=== PATIENT | male | born 1945 | race Caucasian/White ===

== ENCOUNTER 2019-06-30 08:02 | Outpatient (CLI) | payer MEDICARE, SELFPAY | END 2019-06-30 08:03 | disposition home or self-care (01) | PROVIDERS: PCP Internal Medicine; Visit Provider Internal Medicine | DX: E78.5 Hyperlipidemia, unspecified (principal); R05 Cough; R06.00 Dyspnea, unspecified | CPT/HCPCS: 94060; 94726; 94729 ==

== ENCOUNTER 2020-03-14 12:19 | Outpatient (CLI) | payer MEDICARE, SELFPAY ==
[2020-03-14 13:13] LABS: Alanine Aminotransferase 22 U/L (16-63); Albumin Level 3.9 g/dL (3.4-5.0); Alkaline Phosphatase 80 U/L (46-116); Anion Gap 6 mmol/L (8-16); Aspartate Amino Transferase 12 U/L (15-37); Bilirubin,Total 0.4 mg/dL (0.00-1.00); Blood Urea Nitrogen 16 mg/dL (7-18); Calcium 8.9 mg/dL (8.5-10.1); Carbon Dioxide 31 mmol/L (21-32); Chloride 104 mmol/L (98-108); Estimated Glomerular Filt Rate > 60; Glucose 82 mg/dL (70-99); Osmolality Calculated 292 mOsm/kg (285-295); Potassium 4.6 mmol/L (3.5-5.1); Prostate Specific Antigen 1.1 ng/mL (< OR = 4.0); Sodium 141 mmol/L (136-145); Total Protein 7.3 g/dL (6.4-8.2)
== END 2020-03-14 12:20 | disposition home or self-care (01) ==
LOC: CHSLAB 12:21
PROVIDERS: PCP Internal Medicine; Visit Provider Urology
DX: N42.9 Disorder of prostate, unspecified (principal); N40.1 Benign prostatic hyperplasia with lower urinary tract symptoms
CPT/HCPCS: 36415; 80053; 84153

== ENCOUNTER 2020-09-07 09:21 | Outpatient (CLI) | payer MEDICARE, SELFPAY ==
--- NOTE | ~2020-09-07 | XR_ITS ---
EXAMINATION: XR chest 2V EXAM DATE: 09/07/2020 09:50 INDICATION: Dyspnea, new onset. TECHNIQUE: Frontal and lateral projections of the chest obtained and reviewed. Comparison is made to prior examination from 01/26/2012. FINDINGS: Right basilar granuloma. The lungs are clear. There are no pleural effusions. The cardiom ediastinal silhouette is within normal limits. There is no pneumothorax suspected. The bones and so ft tissues are unremarkable. Accounting for differences in technique, there is no significant interv al change. IMPRESSION: No acute cardiopulmonary findings. Reviewed, dictated and finalized at location A.
[2020-09-07 09:36] LABS: Basophils Absolute Auto 0.17 K/mm3 (0.00-0.10); Basophils Percent Auto 2.4 % (0.0-1.0); Eosinophils Absolute Auto 0.53 K/mm3 (0.02-0.50); Eosinophils Percent Auto 7.5 % (1.0-6.0); Hematocrit 50.6 % (37.0-46.0); Hemoglobin 16.5 g/dL (12.4-15.3); Immature Granulocyte Absolute 0.03 K/mm3 (0.00-0.00); Immature Granulocyte Percent A 0.4 % (0.0-0.0); Lymphocytes Absolute Auto 1.35 K/mm3 (1.10-4.50); Lymphocytes Percent Auto 19.2 % (18.0-42.0); Mean Corpuscular HGB Conc 32.6 g/dL (32.0-36.0); Mean Corpuscular Hemoglobin 27.8 pg (27.0-31.0); Mean Corpuscular Volume 85.3 fL (78.0-102.0); Mean Platelet Volume 10.3 fl (8.7-11.0); Monocytes Absolute Auto 0.52 K/mm3 (0.10-0.90); Monocytes Percent Auto 7.4 % (2.0-11.0); Neutrophils Absolute Auto 4.4 K/mm3 (1.7-7.2); Neutrophils Percent Auto 63.1 % (50.0-70.0); Platelet Count Result 223 K/mm3 (150-420); Red Blood Count 5.93 M/mm3 (4.70-6.10); Red Cell Distribution Width 13.2 % (11.6-14.4)
[2020-09-07 09:37] LABS: Add Urine Microscopic? NO; Appearance Urine Clear (Clear); Bilirubin Urine Negative (Negative); Blood Urine Negative (Negative); Color Urine Yellow (Yellow); Glucose Urine UA Negative (Negative); Ketones Urine Negative (Negative); Leukocyte Esterase Ur Negative (Negative); Nitrate Urine Negative (Negative); Protein Urine Negative (Negative); Urobilinogen Urine 0.2 mg/dL (0.2-1.0)
[2020-09-07 11:10] LABS: Alanine Aminotransferase 25 U/L (16-63); Albumin Level 3.8 g/dL (3.4-5.0); Alkaline Phosphatase 98 U/L (46-116); Anion Gap 8 mmol/L (8-16); Aspartate Amino Transferase 15 U/L (15-37); Bilirubin,Total 0.3 mg/dL (0.00-1.00); Blood Urea Nitrogen 19 mg/dL (7-18); Carbon Dioxide 28 mmol/L (21-32); Chloride 104 mmol/L (98-108); Cholesterol 215 mg/dL (0-200); Estimated Glomerular Filt Rate > 60; Free T3 2.99 pg/mL (2.18-3.98); Free T4 Free Thyroxine 0.77 ng/dL (0.76-1.46); Glucose 108 mg/dL (70-99); HDL Direct 66 mg/dL (40-60); LDL Cholesterol Calculated 133 mg/dL (<130); Magnesium 2.1 mg/dL (1.8-2.4); NT Pro B Type Natriuretic Pept 203 pg/mL (0-450); Osmolality Calculated 293 mOsm/kg (285-295); Potassium 4.3 mmol/L (3.5-5.1); Sodium 140 mmol/L (136-145); Total Protein 6.7 g/dL (6.4-8.2); Triglycerides 78 mg/dL (0-150)
== END 2020-09-07 09:22 | disposition home or self-care (01) ==
LOC: CHSLAB 09:24
PROVIDERS: PCP Internal Medicine; Visit Provider Internal Medicine
DX: I48.91 Unspecified atrial fibrillation (principal); R06.00 Dyspnea, unspecified; E78.5 Hyperlipidemia, unspecified
CPT/HCPCS: 36415; 71046; 80053; 80061; 81003; 83735; 83880; 84439; 84443; 84481; 85025

== ENCOUNTER 2020-09-18 10:27 | Outpatient (CLI) | payer MEDICARE, SELFPAY ==
--- NOTE | 2020-09-18 10:32 | ECHO_ITS ---
Patient Info Name: Adair Velazquez Age: 75 years : 1945 Gender: Male Ht: 73 in Wt: 209 lbs BSA: 2.22 m2 HR: 81 bpm BP: 153 / 87 mmHg Heart Rhythm: Sinus Rhythm Technical Quality: Fair Exam Date: 09/18/2020 10:21 AM Exam Location: [facility] Patient Status: Outpatient Admit Date: 09/18/2020 Staff Ordering Physician: Nils Haywood MD Access Nurse: Morelia Pelayo RDCS Attending Provider: Nils Haywood MD Exam Type: CA echo doppler color flow Study Info Indications I49.9 - Cardiac arrhythmia, unspecified Complete two-dimensional, color flow and Doppler transthoracic echocardiogram is performed. Strain analysis performed. History/Risk Factors Hypertension: Yes Dyslipidemia: Yes Peripheral Arterial Disease (PAD): No Renal Disease: No Diabetes Mellitus: No COPD: On Meds Tobacco Use: Former Cerebrovascular Disease: No Family History: Diabetes Mellitus Deep Vein Thrombosis (DVT): None Dialysis: None Frailty Scale (CSHA): 2: Well Summary 1. Complete two-dimensional, color flow and Doppler transthoracic echocardiogram is performed. 2. Left ventricular chamber dimension is normal. 3. Left ventricular systolic function is normal, estimated at 55-60%. 4. There is mildly increased left ventricular wall thickness. 5. The left ventricular diastolic function is grade I diastolic dysfunction. 6. E/e' 5 is not elevated. 7. Global longitudinal strain is abnormal at -8.7%. 8. Left atrial chamber dimension is mildly enlarged. Left Ventricle E/e' 5 is not elevated. Global longitudinal strain is abnormal at -8.7%. Left ventricular chamber dimension is normal. Left ventricular systolic function is normal, estimated at 55-60%. There is mildly increased left ventricular wall thickness. The left ventricular diastolic function is grade I diastolic dysfunction. Right Ventricle Right ventricular systolic function is normal and with normal TAPSE 2.2 cm. Right ventricular chamber dimension is normal. Left Atria Left atrial chamber dimension is mildly enlarged. Right Atria Right atrial chamber dimension is normal. Aortic Valve The aortic valve is trileaflet. There is no aortic valve stenosis. There is no aortic valve regurgitation. Pulmonic Valve There is no pulmonic regurgitation. Mitral Valve There is no mitral valve stenosis. There is no mitral valve regurgitation. Tricuspid Valve There is no tricuspid valve regurgitation. Pericardium/Pleural There is no pericardial effusion. Inferior Vena Cava Normal inferior vena cava with >50% collapse upon inspiration consistent with normal right atrial pressure, 5 mmHg. Aorta The aortic root size at the sinus of Valsalva is normal. Left Ventricular Outflow Tract Name Value Normal LVOT 2D LVOT Diameter 1.8 cm LVOT Doppler LVOT Peak Velocity 81 cm/s LVOT Peak Gradient 3 mmHg LVOT Mean Gradient 1 mmHg LVOT VTI 21 cm LVOT VTI/AV VTI Ratio
== END 2020-09-18 10:28 | disposition home or self-care (01) ==
LOC: CHSIMG 10:28
PROVIDERS: PCP Internal Medicine; Visit Provider Internal Medicine
DX: I48.91 Unspecified atrial fibrillation (principal); R06.00 Dyspnea, unspecified
CPT/HCPCS: 93306

== ENCOUNTER 2021-03-15 11:37 | Outpatient (CLI) | payer MEDICARE, SELFPAY ==
[2021-03-15 12:41] LABS: Alanine Aminotransferase 24 U/L (16-63); Albumin Level 3.7 g/dL (3.4-5.0); Alkaline Phosphatase 84 U/L (46-116); Anion Gap 7 mmol/L (8-16); Aspartate Amino Transferase 13 U/L (15-37); Bilirubin,Total 0.5 mg/dL (0.00-1.00); Blood Urea Nitrogen 15 mg/dL (7-18); Calcium 8.8 mg/dL (8.5-10.1); Carbon Dioxide 31 mmol/L (21-32); Chloride 104 mmol/L (98-108); Estimated Glomerular Filt Rate > 60; Glucose 91 mg/dL (70-99); Osmolality Calculated 294 mOsm/kg (285-295); Potassium 4.3 mmol/L (3.5-5.1); Sodium 142 mmol/L (136-145); Total Protein 6.5 g/dL (6.4-8.2)
== END 2021-03-15 11:38 | disposition home or self-care (01) ==
LOC: CHSLAB 11:40
PROVIDERS: PCP Internal Medicine; Visit Provider Urology
DX: N42.9 Disorder of prostate, unspecified (principal); N40.1 Benign prostatic hyperplasia with lower urinary tract symptoms
CPT/HCPCS: 36415; 80053; 84153

== ENCOUNTER 2022-02-03 11:18 | Outpatient (CLI) | payer MEDICARE, SELFPAY ==
[2022-02-03 11:38] LABS: Influenza Control Valid (Valid)
== END 2022-02-03 11:19 | disposition home or self-care (01) ==
LOC: CHSLAB 11:20
PROVIDERS: PCP Internal Medicine; Visit Provider Internal Medicine
DX: J06.9 Acute upper respiratory infection, unspecified (principal)
CPT/HCPCS: 87804

== ENCOUNTER 2022-04-04 10:07 | Outpatient (CLI) | payer MEDICARE, SELFPAY ==
[2022-04-04 11:11] LABS: Alanine Aminotransferase 18 U/L (16-63); Albumin Level 3.5 g/dL (3.4-5.0); Alkaline Phosphatase 83 U/L (46-116); Anion Gap 6 mmol/L (8-16); Aspartate Amino Transferase 12 U/L (15-37); Bilirubin,Total 0.5 mg/dL (0.00-1.00); Blood Urea Nitrogen 12 mg/dL (7-18); Calcium 8.7 mg/dL (8.5-10.1); Carbon Dioxide 31 mmol/L (21-32); Chloride 104 mmol/L (98-108); Estimated Glomerular Filt Rate > 60; Glucose 124 mg/dL (70-99); Osmolality Calculated 292 mOsm/kg (285-295); Potassium 4.2 mmol/L (3.5-5.1); Prostate Specific Antigen 2.8 ng/mL (< OR = 4.0); Sodium 141 mmol/L (136-145); Total Protein 6.9 g/dL (6.4-8.2)
== END 2022-04-04 10:08 | disposition home or self-care (01) ==
LOC: CHSLAB 10:10
PROVIDERS: PCP Internal Medicine; Visit Provider Urology
DX: N42.9 Disorder of prostate, unspecified (principal); N40.1 Benign prostatic hyperplasia with lower urinary tract symptoms
CPT/HCPCS: 36415; 80053; 84153

== ENCOUNTER 2023-04-03 11:53 | Outpatient (CLI) | payer MEDICARE, SELFPAY ==
[2023-04-03 12:46] LABS: Alanine Aminotransferase 23 U/L (16-63); Albumin Level 3.9 g/dL (3.4-5.0); Alkaline Phosphatase 88 U/L (46-116); Anion Gap 4 mmol/L (8-16); Aspartate Amino Transferase 15 U/L (15-37); Bilirubin,Total 0.5 mg/dL (0.00-1.00); Blood Urea Nitrogen 9 mg/dL (7-18); Calcium 9.3 mg/dL (8.5-10.1); Carbon Dioxide 32 mmol/L (21-32); Chloride 100 mmol/L (98-108); Estimated Glomerular Filt Rate > 60; Glucose 108 mg/dL (70-99); Osmolality Calculated 281 mOsm/kg (285-295); Potassium 4.1 mmol/L (3.5-5.1); Prostate Specific Antigen 1.2 ng/mL (< OR = 4.0); Sodium 136 mmol/L (136-145); Total Protein 6.7 g/dL (6.4-8.2)
== END 2023-04-03 11:54 | disposition home or self-care (01) ==
LOC: CHSLAB 11:55
PROVIDERS: PCP Internal Medicine; Visit Provider Urology
DX: N42.9 Disorder of prostate, unspecified (principal); N40.1 Benign prostatic hyperplasia with lower urinary tract symptoms
CPT/HCPCS: 36415; 80053; 84153

== ENCOUNTER 2023-08-18 08:37 | Outpatient (CLI) | payer MEDICARE, SELFPAY ==
[2023-08-18] VITALS (7 sets, daily range): PULSE 84–107; O2SAT 95–99
[2023-08-18 09:11] LABS: Base Excess ABG -1.7 mmol/L (0-2); Carboxyhemoglobin 0.6 % (0-1.5); HCO3 ABG 22.6 mmol/L (23-29); Methemoglobin ABG 0.5 % (0-1.5); Oxygen Content ABG 21.4 %vol (16.0-22.0); Oxygen Saturation ABG 95.8 % (95-97); Oxyhemoglobin 94.7 % (94-100); PCO2 ABG 37.3 mmHg (35-45); Reduced Hemoglobin 4.2 % (0-1.5); Total Hemoglobin 16.1 g/dL (12.0-18.0)
[2023-08-18 09:13] LABS: Device ROOM AIR; Modified Allen's Test Pass; Site Drawn RIGHT RADIAL
--- NOTE | 2023-08-18 10:30 | HOMEO2EVAL ---
Evaluation was performed at [facility] Home Oxygen Evaluation RC: Home Oxygen (O2) Evaluation Start: 08/18/23 10:06 Freq: Status: Active Protocol: RPE Activity Type Activity Date Activity User E-sign Co-sign Detail Recorded Client Recorded Date Recorded By Document 08/18/23 09:12 KRM [id number] 08/18/23 10:12 KRM Document 08/18/23 09:13 KRM [id number] 08/18/23 10:12 KRM Document 08/18/23 09:14 KRM [id number] 08/18/23 10:15 KRM Document 08/18/23 09:15 KRM [id number] 08/18/23 10:15 KRM Document 08/18/23 09:16 KRM [id number] 08/18/23 10:15 KRM Document 08/18/23 09:17 KRM [id number] 08/18/23 10:15 KRM Document 08/18/23 09:18 KRM [id number] 08/18/23 10:15 KRM 08/18/23 08/18/23 08/18/23 09:12 09:13 09:14 Home O2 Evaluation [Oxygen] -Test Phase Resting Exercise Exercise -Oxygen Delivery Room Air Room Air Room Air -Fraction of Inspired Oxygen (%) 21 21 [Pulse Oximetry] -Pulse Oximetry (90-100 %) 97 99 98 [Pulse Rate] -Pulse Rate (60-100 beats/min) 84 99 100 [Evaluation] -Activity Tolerance Good Good Good -Rating of Perceived Dyspnea (PD) +2 Mild, Some +2 Mild, Some +2 Mild, Some Difficulty, Difficulty, Difficulty, Noticeable to Noticeable to Noticeable to the Observer the Observer the Observer -Rate of Perceived Exertion (PE) 6 Very, very 6 Very, very 6 Very, very Query Text:Click the Protocol Button light light light to View the RPE Scale [Charges] -Evaluation Charges O2 Evaluation Charge 08/18/23 08/18/23 08/18/23 09:15 09:16 09:17 Home O2 Evaluation [Oxygen] -Test Phase Exercise Exercise Exercise -Oxygen Delivery Room Air Room Air Room Air -Fraction of Inspired Oxygen (%) 21 21 21 [Pulse Oximetry] -Pulse Oximetry (90-100 %) 96 96 95 [Pulse Rate] -Pulse Rate (60-100 beats/min) 104 H 107 H 106 H [Evaluation] -Activity Tolerance Good Good Good -Rating of Perceived Dyspnea (PD) +2 Mild, Some +2 Mild, Some +2 Mild, Some Difficulty, Difficulty, Difficulty, Noticeable to Noticeable to Noticeable to the Observer the Observer the Observer -Rate of Perceived Exertion (PE) 6 Very, very 6 Very, very 6 Very, very Query Text:Click the Protocol Button light light light to View the RPE Scale [Charges] -Evaluation Charges 08/18/23 09:18 Home O2 Evaluation [Oxygen] -Test Phase Resting -Oxygen Delivery Room Air -Fraction of Inspired Oxygen (%) 21 [Pulse Oximetry] -Pulse Oximetry (90-100 %) 95 [Pulse Rate] -Pulse Rate (60-100 beats/min) 106 H [Evaluation] -Activity Tolerance Good -Rating of Perceived Dyspnea (PD) +2 Mild, Some Difficulty, Noticeable to the Observer -Rate of Perceived Exertion (PE) 6 Very, very Query Text:Click the Protocol Button light to View the RPE Scale [Charges] -Evaluation Charges
--- NOTE | 2023-08-18 17:28 | WPDPFTINT ---
PFT Procedure Performed PFT Procedure Performed Spirometry with Pre/Post Bronchodilator Plethysmography (Lung Vol) Diffusing Cap (DLCO) Flow Vol Loop PFT Interpretation DOS: 08/18/2023 REQUESTING: Alverto Ray MD REASON FOR TESTING: COPD PULMONARY FUNCTION TESTS Results are reliable and reproducible. Spirometry: The pre-bronchodilator FEV1 is 2.19 L, 69%. The pre-bronchodilator FVC is 4.57 L, 111%. The FEV1/FVC ratio is 48% consistent with airflow obstruction. After bronchodilator, the FEV1 is 2.37 L, 75%, +8% increase. After bronchodilator, the FVC is 4.38 L, 106%, -4% decrease. The FEV1/FVC ratio is 54% after bronchodilator. Lung volumes: The total lung capacity is 7.21 L, 105%. The residual volume is 2.64 L, 93%. The RV/TLC is 37%. The FRC is 4.26, 112%. Airway resistance is elevated. Diffusion: DLCO is 24.5, 112%. The DLCO/VA is 4.00, 119%. Flow volume loop: The flow volume loop shows coving of the expiratory limb consistent with airflow obstruction. IMPRESSION: Mild obstructive ventilatory impairment, FEV1 is 2.19 L 69% predicted, normal lung volumes, normal diffusion, no response to bronchodilator. Lack of response to bronchodilator should not preclude use if clinically indicated. Compared to a PFt on 06/30/2019, there was a mild obstructive abnormality with an FEV1 2.36 L, 75% predicted, ratio 51%, no bronchodilator response, increased FRC, normal DLCO. Latosha Baer MD
--- NOTE | 2023-08-18 18:06 | WPDSIXMINUTE ---
Six Minute Walk Procedure Procedure Performed Pulmonary Stress Test (6 min walk) Six Minute Walk Six Minute Walk: DATE OF SERVICE: 08/18/2023 REQUESTING: Alverto Ray MD REASON FOR TESTING: COPD SIX MINUTE WALK This test was conducted per ATS guidelines. The initial saturation was 97%, and initial heart rate was 84 beats per minute. The patient walked without stopping, completing 600 ft/182 meters while breathing room air. The saturation at the end of testing was 95%, and the maximum heart rate was 106 beats per minute. IMPRESSION: This is a normal study. The patient did not require supplemental oxygen with exertion. Latosha Baer MD
== END 2023-08-18 08:38 | disposition home or self-care (01) ==
LOC: CHSCARD 08:39
PROVIDERS: PCP Internal Medicine; Visit Provider Internal Medicine Pulmonary Disease
DX: J44.9 Chronic obstructive pulmonary disease, unspecified (principal)
CPT/HCPCS: 36600; 82375; 82805; 83050; 94060; 94618; 94726; 94729

== ENCOUNTER 2024-05-18 09:46 | Outpatient (CLI) | payer MEDICARE, SELFPAY ==
--- OUTSIDE RECORDS SUMMARY | 2024-05-18 10:35 | XMS_ITS | Referral Summary ---
Author Organization [facility] [address] Address [address] [place] [address] Care Team Providers Care Private Tutors And Teachers Name Role Phone Nils Haywood MD Primary Care Provider [phone] Allergies No known active allergies Medications finasteride (PROSCAR) 5 mg tablet Take 1 tablet (5 mg total) by mouth daily Active atorvastatin (LIPITOR) 10 mg tablet Take 1 tablet (10 mg total) by mouth daily Active tamsulosin (FLOMAX) 0.4 mg extended release capsule 1 capsule (0.4 mg total) daily Active Combivent Respimat 20-100 mcg/actuation inhaler 0 Active montelukast (SINGULAIR) 10 mg tablet 0 Active metoprolol XL (TOPROL-XL) 25 mg extended release tabletIndications :Postoperative atrial fibrillation (CMS/HCC) (HCC) TAKE 1 TABLET (25 MG TOTAL) BY MOUTH DAILY 90 tablet 3 Active apixaban (Eliquis) 5 mg tablet TAKE 1 TABLET (5 MG TOTAL) BY MOUTH 2 (TWO) TIMES A DAY 180 tablet 2 4 Active Active Problems Problem Noted Date Diagnosed Date Paroxysmal atrial fibrillation (CMS/HCC) 019 Social History Tobacco Use Types Packs/Day Years Used Date Smoking Tobacco: Former Smokeless Tobacco: Former Quit: 07/13/2018 Tobacco Cessation:Counseling Given: Not Answered Comments:QUITE 15 YRS AGO Alcohol Use Standard Drinks/Week Comments Never 0 (1 standard drink = 0.6 oz pur e alcohol) AUDIT-C Answer Date Recorded Frequency of Alcohol Consumption Never 03/22/2020 Average Number of Drinks Not on file 020 Frequency of Binge Drinking Not on file 06/2019 Personal Safety Answer Date Recorded Getting School Help Needed Not on file 05/20 Sex and Gender Information Value Date Recorded Sex Assigned at Not on file Legal Sex Male 2:48 PM STREETCAR DISPATCHER Gender Identity Not on file Sexual Orientation Not on file Last Filed Vital Signs Vital Sign Reading Time Taken Comments Blood Pressure 130/80 02/26/2023 11:11 AM STREETCAR DISPATCHER Pulse 79 02/26/2023 11:11 AM STREETCAR DISPATCHER Temperature - - Respiratory Rate - - Oxygen Saturation 97% 02/26/2023 11:11 AM STREETCAR DISPATCHER Inhaled Oxygen Concentration - - Weight 95.7 kg (211 lb) 02/26/2023 11:11 AM STREETCAR DISPATCHER Height 182.9 cm (6') 02/26/2023 11:11 AM STREETCAR DISPATCHER Body Mass Index 28.62 02/26/2023 11:11 AM STREETCAR DISPATCHER Plan of Treatment Not on file Insurance [facility] MEDIC[facility] Address: [facility] [address] [place] [address] [facility]ARE [facility] Address: [facility] [address] [place] [address] Care Teams Private Tutors And Teachers Relationship Specialty Start Date End Date Nils Haywood MD PCP - General Internal Medicine 06/30/18
--- OUTSIDE RECORDS SUMMARY | 2024-05-18 10:35 | XMS_ITS | Clinical Summary ---
Author Organization [facility] [address] [facility] [address] [place] [address] Care Team Providers Care Chief Of Pediatric Urology Name Role Phone Nils Haywood MD Primary Care Provider [phone] Allergies No known active allergies Medications finasteride [...] Diagnosed Date Paroxysmal atrial fibrillation (CMS/HCC) 019 Medical History Medical History Date Comments Atrial fibrillation (CMS/HCC) (HCC) Family History Medical History Relation Name Comments Heart disease Father Relation Name Status Comments Brother Alive Father Mother Social History Tobacco Use Types Packs/Day Years [...] on file Legal Sex Male 2:48 PM SHEETFED PRESS OPERATOR Gender Identity Not on file Sexual Orientation Not on file Obstetrics History Last Filed Vital Signs Vital Sign Reading Time Taken Comments Blood Pressure 130/80 02/26/2023 11:11 AM SHEETFED PRESS OPERATOR Pulse 79 02/26/2023 11:11 AM SHEETFED PRESS OPERATOR Temperature - - Respiratory Rate - - Oxygen Saturation 97% 02/26/2023 11:11 AM SHEETFED PRESS OPERATOR Inhaled Oxygen Concentration - - Weight 95.7 kg (211 lb) 02/26/2023 11:11 AM SHEETFED PRESS OPERATOR Height 182.9 cm (6') 02/26/2023 11:11 AM SHEETFED PRESS OPERATOR Body Mass Index 28.62 02/26/2023 11:11 AM SHEETFED PRESS OPERATOR Plan of Treatment Health Maintenance Due Date Last Done Comments Depression Screening 1945 Fall Risk Assessment 1945 Hepatitis B Screening 1963 Zoster Vaccine (1 of 2) 1994 Abdominal Aortic Aneurysm (A AA) Screen 2009 Well Visit 65+ 2009 DTaP/Tdap/Td Vaccine (1 - Tdap) 08/20/2011 2 Pneumococcal vaccine 65+ (2 of 2 - PCV) 01/17/2015 01/17/2014 Influenza Vaccine (#1) 2023 8, 03/09/2015, 05/04/2012 Insurance [employer] Care Teams Chief Of Pediatric Urology Relationship Specialty Start Date End Date Nils Haywood MD PCP - General Internal Medicine 06/30/18
--- OUTSIDE RECORDS SUMMARY | 2024-05-18 10:35 | XMS_ITS | Clinical Summary ---
Author Organization [facility] Address [address] [place] [address]. [place], [place] [address] [place] [address] Care Team Providers Care Machine Tool Dresser Name Role Phone Nils Haywood MD Primary Care Provider [phone] Allergies No known active allergies Medications budesonide-form oterol (SYMBICORT) 160-4.5 MCG/ACT inhaler Inhale 2 puffs into the lungs 2 (two) times daily. Active apixaban (ELIQUIS) 5 MG tablet Take 1 tablet (5 mg total) by mouth 2 (two) times daily. Active atorvastatin (LIPITOR) 10 MG tablet Take 1 tablet (10 mg total) by mouth nightly at bedtime. Active Active Problems No known active problems Social History Tobacco Use Types Packs/Day Years Used Date Smoking Tobacco: Never Smokeless Tobacco: Never Tobacco Cessation:Counseling Given: Not Answered Alcohol Use Standard Drinks/Week Comments Not Currently 0 (1 standard drink = 0.6 oz pur e alcohol) Sex and Gender Information Value Date Recorded Sex Assigned at Not on file Legal Sex Male 8:55 PM CDT Gender Identity Not on file Sexual Orientation Not on file Last Filed Vital Signs Vital Sign Reading Time Taken Comments Blood Pressure 141/81 10/12/2023 8:09 AM CDT Pulse 72 10/12/2023 8:09 AM CDT Temperature 36.3 ??C (97.3 ??F) 10/12/2023 8:09 AM CD T Respiratory Rate 16 10/12/2023 8:09 AM CDT Oxygen Saturation 98% 10/12/2023 8:09 AM CDT Inhaled Oxygen Concentration - - Weight 95.3 kg (210 lb) 10/06/2023 2:01 PM CDT Height 182.9 cm (6') 10/06/2023 2:01 PM CDT Body Mass Index 28.48 10/06/2023 2:01 PM CDT Plan of Treatment Health Maintenance Due Date Last Done Comments Hepatitis C 1963 Zoster Vaccines (1 of 2) 1994 Annual Medicare Wellness Visit 2009 DTaP, Tdap and Td Vaccines (1 - Tdap) 08/20/2011 08/19/2011 RSV Immunization or 60+ Years (1 - 1-dose 75+ series) 2019 Pneumococcal Vaccine: 65+ Years (2 of 2 - PCV) 08/14/2020 08/15/2019, 01/17/2014 COVID-19 Vaccine (3 - season) 2023 08/03/2020, 07/06/2020 Influenza Adult (#1) 2024 05/01/2023, 01/22/2021, 01/03/2020, Additional history exists Meningococcal B Vaccine Aged Out No l onger eligible based on patient's age to complete this topic Meningococcal Vaccine Aged Out No arielle maria de jesus eligible based on patient's age to complete this topic RSV Immunizations Under 20 Months Aged Out No longer eligible based on patient's age to complete this topic Medical Devices Implanted Type Area It Business Analyst Device Identifier Shelf Expiration Date Model / Serial / Lot Iol Tecnis Simplicity Dcb00 - [id number] Implanted:Qty: 1 on 08/05/2023 by Shonda Good MD at [facility] Lens Right: Eye [employer] [facility] [id number] 09/13/2025 DCB00 / [id number] / Tecnis Iol Implanted:Qty: 1 on 10/12/2023 by Shonda Good MD at [facility] Left: Eye [employer] 06/07/2026 / [id number] / [id number] Insurance [facility] Care Teams Machine Tool Dresser Relationship Specialty Start Date End Date Nils Haywood MD [address] [place] [address] PCP - General INTERNAL MEDICINE 08/05/23
[2024-05-18 11:14] LABS: Alanine Aminotransferase 22 U/L (16-63); Albumin Level 3.8 g/dL (3.4-5.0); Alkaline Phosphatase 107 U/L (46-116); Anion Gap 8 mmol/L (4-12); Aspartate Amino Transferase 14 U/L (15-37); Bilirubin,Total 0.4 mg/dL (0.00-1.00); Blood Urea Nitrogen 12 mg/dL (7-18); Calcium 8.8 mg/dL (8.5-10.1); Carbon Dioxide 29 mmol/L (21-32); Chloride 103 mmol/L (98-108); Estimated Glomerular Filt Rate > 60; Glucose 121 mg/dL (70-99); Osmolality Calculated 290 mOsm/kg (285-295); Potassium 4.4 mmol/L (3.5-5.1); Prostate Specific Antigen 1.3 ng/mL (< OR = 4.0); Sodium 140 mmol/L (136-145); Total Protein 6.4 g/dL (6.4-8.2)
== END 2024-05-18 09:47 | disposition home or self-care (01) ==
LOC: CHSLAB 09:48
PROVIDERS: PCP Internal Medicine; Visit Provider Urology
DX: N42.9 Disorder of prostate, unspecified (principal); N40.1 Benign prostatic hyperplasia with lower urinary tract symptoms
CPT/HCPCS: 36415; 80053; 84153

== ENCOUNTER 2024-06-13 15:16 | Outpatient (CLI) | payer MEDICARE, SELFPAY ==
--- NOTE | ~2024-06-13 | XR_ITS ---
CHEST RADIOGRAPH, PA AND LATERAL CLINICAL HISTORY: URI, COPD Exacerbation, Dyspnea, SOB, Weakness . COMPARISON: 09/07/2020 TECHNIQUE: PA and lateral views of the chest. FINDINGS The cardiomediastinal silhouette is unremarkable. Calcified granuloma within the right mid to lower lung field. Biapical scarring The remainder of the lungs are clear. IMPRESSION: No focal infiltrate or effusion. Reviewed, dictated and finalized at location A. TH INSURANCE SPECIALIST
[2024-06-13 15:32] LABS: Hemoglobin 15.1 g/dL (12.4-15.3); Mean Corpuscular HGB Conc 31.5 g/dL (32-36); Mean Corpuscular Volume 85.7 fL (78.0-102.0); Mean Platelet Volume 9.7 fl (8.7-11.0); Platelet Count Result 240 K/mm3 (150-420); Red Cell Distribution Width 13.5 % (11.6-14.4); White Blood Count 8.9 K/mm3 (4.8-10.8)
[2024-06-13 16:08] LABS: SARS-CoV-2 RNA PCR Negative (Negative)
[2024-06-13 16:10] LABS: Influenza A QL RT-PCR Positive (Negative); Influenza B QL RT-PCR Negative (Negative); RSV RNA, RT-PCR Negative (Negative)
[2024-06-13 16:12] LABS: Alanine Aminotransferase 18 U/L (16-63); Albumin Level 3.5 g/dL (3.4-5.0); Alkaline Phosphatase 96 U/L (46-116); Anion Gap 9 mmol/L (4-12); Aspartate Amino Transferase 11 U/L (15-37); Bilirubin,Total 0.6 mg/dL (0.00-1.00); Blood Urea Nitrogen 9 mg/dL (7-18); CRP 3.6 mg/dL (0.0-0.9); Calcium 8.9 mg/dL (8.5-10.1); Carbon Dioxide 30 mmol/L (21-32); Chloride 100 mmol/L (98-108); Creatine Kinase 66 U/L (39-308); Estimated Glomerular Filt Rate > 60; Glucose 97 mg/dL (70-99); NT Pro B Type Natriuretic Pept 127 pg/mL (0-450); Osmolality Calculated 286 mOsm/kg (285-295); Potassium 3.7 mmol/L (3.5-5.1); Sodium 139 mmol/L (136-145); Total Protein 7.4 g/dL (6.4-8.2); Troponin I 6.1 ng/L (0.00-60.4)
--- OUTSIDE RECORDS SUMMARY | 2024-06-13 17:49 | XMS_ITS | Referral Summary ---
Author Organization [facility] [address] [place] [address] Care Team Providers Care Network Systems Engineer Name Role Phone Nils Hyawood MD Primary Care Provider [phone] Allergies No known active allergies Medications finasteride [...] on file Legal Sex Male 2:48 PM SETUP OPERATOR Gender Identity Not on file Sexual Orientation Not on file Last Filed Vital Signs Vital Sign Reading Time Taken Comments Blood Pressure 130/80 02/26/2023 11:11 AM SETUP OPERATOR Pulse 79 02/26/2023 11:11 AM SETUP OPERATOR Temperature - - Respiratory Rate - - Oxygen Saturation 97% 02/26/2023 11:11 AM SETUP OPERATOR Inhaled Oxygen Concentration - - Weight 95.7 kg (211 lb) 02/26/2023 11:11 AM SETUP OPERATOR Height 182.9 cm (6') 02/26/2023 11:11 AM SETUP OPERATOR Body Mass Index 28.62 02/26/2023 11:11 AM SETUP OPERATOR Plan of Treatment Not on file Insurance [facility] MEDIC[facility] Address: [facility] [address] [place] [address] [facility]IC[facility] MEDIC[facility] Address: [facility] [address] [place] [address] Care Teams Network Systems Engineer Relationship Specialty Start Date End Date Nils Haywood MD PCP - General Internal Medicine 06/30/18
--- OUTSIDE RECORDS SUMMARY | 2024-06-13 17:49 | XMS_ITS | Clinical Summary ---
Author Organization [facility] Address [facility] [place] [address] Care Team Providers Care Mouse Breeder Name Role Phone Nils Haywood MD Primary Care Provider [phone] Allergies No known active allergies Medications budesonide-form [...] 72 10/12/2023 8:09 AM CDT Temperature 36.3 C (97.3 F) 10/12/2023 8:09 AM CDT Respiratory Rate 16 10/12/2023 8:09 AM CDT Oxygen Saturation 98% 10/12/2023 8:09 AM CDT Inhaled Oxygen Concentration - - Weight 95.3 kg (210 lb) 10/06/2023 2:01 PM CDT Height 182.9 cm (6') 10/06/2023 2:01 PM CDT Body Mass Index 28.48 10/06/2023 2:01 PM CDT Plan of Treatment Health Maintenance Due Date Last Done Comments Zoster Vaccines (1 of 2) 1994 Annual [...] this topic Medical Devices Implanted Type Area Mercerizer Machine Operator Device Identifier Shelf Expiration Date Model / Serial / Lot Iol Tecnis Simplicity Dcb00 - [id number] Implanted:Qty: 1 on 08/05/2023 by Shonda Good MD at [facility] Lens Right: Eye [employer] [facility] [id number] 09/13/2025 DCB00 / [id number] / Tecnis Iol Implanted:Qty: 1 on 10/12/2023 by Shonda Good MD at [facility] Left: Eye [employer] [facility] 06/07/2026 / [id number] / [id number] Insurance [facility] Care Teams Mouse Breeder Relationship Specialty Start Date End Date Nils Haywood MD [address] [place] [id number] PCP - General INTERNAL MEDICINE 08/05/23
--- OUTSIDE RECORDS SUMMARY | 2024-06-13 17:49 | XMS_ITS | Clinical Summary ---
Author Organization [facility] [address] Address [address] [place] [address] Care Team Providers Care Grain Origination Specialist Name Role Phone Nils Haywood MD Primary Care Provider [phone] Allergies No known active allergies Medications finasteride [...] on file Legal Sex Male 2:48 PM CYLINDER HANDLER Gender Identity Not on file Sexual Orientation Not on file Obstetrics History Last Filed Vital Signs Vital Sign Reading Time Taken Comments Blood Pressure 130/80 02/26/2023 11:11 AM CYLINDER HANDLER Pulse 79 02/26/2023 11:11 AM CYLINDER HANDLER Temperature - - Respiratory Rate - - Oxygen Saturation 97% 02/26/2023 11:11 AM CYLINDER HANDLER Inhaled Oxygen Concentration - - Weight 95.7 kg (211 lb) 02/26/2023 11:11 AM CYLINDER HANDLER Height 182.9 cm (6') 02/26/2023 11:11 AM CYLINDER HANDLER Body Mass Index 28.62 02/26/2023 11:11 AM CYLINDER HANDLER Plan of Treatment Health Maintenance Due Date [...] 03/09/2015, 05/04/2012 Insurance [employer] Care Teams Grain Origination Specialist Relationship Specialty Start Date End Date Nils Haywood MD PCP - General Internal Medicine 06/30/18
== END 2024-06-13 15:17 | disposition home or self-care (01) ==
LOC: CHSLAB 15:18
PROVIDERS: PCP Internal Medicine; Visit Provider Internal Medicine
DX: J06.9 Acute upper respiratory infection, unspecified (principal); J44.1 Chronic obstructive pulmonary disease with (acute) exacerbation; R06.00 Dyspnea, unspecified
CPT/HCPCS: 36415; 71046; 80053; 82550; 82553; 83880; 84484; 85027; 86140; 87637

== ENCOUNTER 2024-10-26 20:28 | Observation (INO) | payer MEDICARE, SELFPAY ==
[2024-10-26] VITALS (21 sets, daily range): BP systolic 120–133; BP diastolic 68–77; PULSE 74–103; RESP 14–26; TEMP 37.2–38.3; O2SAT 82–95; BMI 28.5
--- NOTE | ~2024-10-26 | CT_ITS ---
CTA chest PE protocol Ordering provider: Maryjane Mcleod MD History: 79 years Male with . SOB/HX OF COPD . Comparison: October 11, 2018 Technique: CT angiogram chest was performed following timed intravenous injection of contrast. Thin s lice axial images and reformatted coronal images were obtained. Three dimensional reformatted images of the chest were also obtained using a [employer] workstation. . Automated exposure control and iterati ve reconstruction technique were employed. The dose-length product was 891.04 mGy-cm. 100 mL Omnipaqu e 350 was given IV. Findings: PULMONARY ARTERIES: No pulmonary embolus. VISUALIZED THORACIC INLET: Normal. MEDIASTINUM: Aorta/coronary arteries: Mild atheromatous disease. Heart/other: The heart is slightly enlarged. Lymph nodes: No mediastinal or hilar adenopathy. Subcarinal calcified lymph nodes are noted. LUNGS: Dependent atelectatic changes. Pleural base nodule is seen in the right middle lobe which measures 1. 2 cm which is unchanged from previous examination. No pulmonary masses. No infiltrates or effusions. No pneumothorax. Underlying emphysematous changes. VISUALIZED UPPER ABDOMEN: Small sliding hiatus hernia. Calcified granulomas in the spleen. Hypodensit y seen in the spleen which is unchanged. Right renal cyst. Otherwise, the visualized upper abdomen is normal. MUSCULOSKELETAL: Soft tissues: The superficial soft tissues are normal. Bones: Age appropriate degenerative changes of the spine. Mild levoscoliosis. IMPRESSION: 1. No pulmonary embolism. 2. No acute cardiopulmonary pathology. 3. Sliding hiatus hernia. 4. Hypodensity in the spleen unchanged. Reviewed, dictated and finalized at location A.
--- NOTE | ~2024-10-26 | XR_ITS ---
XR chest 1V portable Ordering provider: Maryjane Mcleod MD History: 79 years Male with . sob/HX OF COPD . Comparison: June 13, 2024 FINDINGS: MEDIASTINUM: The cardiac silhouette is slightly enlarged. Prominent eileen. LUNGS: No infiltrates, effusions or pneumothorax. Underlying emphysematous changes. OTHER: No free air under the diaphragm. Degenerative changes of the spine. IMPRESSION: No acute cardiopulmonary pathology. Reviewed, dictated and finalized at location A.
--- OUTSIDE RECORDS SUMMARY | 2024-10-26 20:30 | XMS_ITS | Clinical Summary ---
Author Organization [facility] Address [facility] [place] [address] Care Team Providers Care Desizing Machine Back Tender Name Role Phone Nils Haywood MD Primary Care Provider [phone] Allergies No known active allergies Medications budesonide-form [...] Visit 2009 DTaP, Tdap and Td Vaccines ( 1 - Tdap) 08/20/2011 08/19/2011 RSV Immunization or 60+ Years (1 - 1-dose 75+ series) 2019 Pneumococcal Vaccine: 50+ Years (2 of 2 - PCV) 08/14/2020 08/15/2019, 01/17/2014 COVID-19 Vaccine (3 - 2023-2 5 season) 2023 08/03/2020, 07/06/2020 Meningococcal B Vaccine Aged Out No l onger eligible based on patient's age to complete this topic Meningococcal Vaccine Aged Out No arielle maria de jesus eligible based on patient's age to complete this topic RSV Immunizations Under 20 Months Aged Out No longer eligible b ased on patient's age to complete this topic Medical Devices Implanted Type Area Roving Weight Gauger Device Identifier Shelf Expiration Date Model / Serial / Lot Iol Tecnis Simplicity Dcb00 - [id number] Implanted:Qty: 1 on 08/05/2023 by Shonda Good MD at [facility] Lens Right: Eye [employer] [facility] [id number] 09/13/2025 DCB00 / [id number] / Tecnis Iol Implanted:Qty: 1 on 10/12/2023 by Shonda Good MD at [facility] Left: Eye [employer] 06/07/2026 / [id number] / [id number] Insurance [facility] Care Teams Desizing Machine Back Tender Relationship Specialty Start Date End Date Nils Haywood MD [address] [place] [address] PCP - General INTERNAL MEDICINE 08/05/23
--- OUTSIDE RECORDS SUMMARY | 2024-10-26 20:30 | XMS_ITS | Clinical Summary ---
Author Organization [facility] [place] [address] [facility] [address] Address [address] [place] [address] Care Team Providers Care Enamel Pulverizer Name Role Phone Nils Haywood MD Primary Care Provider Allergies No known active allergies Medications finasteride [...] mg extended release tabletIndications :Postoperative atrial fibrillation (HCC) TAKE 1 TABLET (25 MG TOTAL) BY MOUTH DAILY 90 tablet 3 Active apixaban (Eliquis) 5 mg tablet TAKE 1 TABLET (5 MG TOTAL) BY MOUTH 2 (TWO) TIMES A DAY 180 tablet 2 4 Active Active Problems Problem Noted Date Diagnosed Date Paroxysmal atrial fibrillation 08/03/2018 Medical History Medical History Date Comments Atrial fibrillation (HCC) Family History Medical History Relation Name [...] on file Legal Sex Male 2:48 PM GOLF COURSE KEEPER Gender Identity Not on file Sexual Orientation Not on file Obstetrics History Last Filed Vital Signs Vital Sign Reading Time Taken Comments Blood Pressure 130/80 02/26/2023 11:11 AM GOLF COURSE KEEPER Pulse 79 02/26/2023 11:11 AM GOLF COURSE KEEPER Temperature - - Respiratory Rate - - Oxygen Saturation 97% 02/26/2023 11:11 AM GOLF COURSE KEEPER Inhaled Oxygen Concentration - - Weight 95.7 kg (211 lb) 02/26/2023 11:11 AM GOLF COURSE KEEPER Height 182.9 cm (6') 02/26/2023 11:11 AM GOLF COURSE KEEPER Body Mass Index 28.62 02/26/2023 11:11 AM GOLF COURSE KEEPER Plan of Treatment Health Maintenance Due Date Last Done Comments Depression Screening 1945 Fall Risk Assessment 1945 Hepatitis B Screening 1962 Zoster Vaccine (1 of 2) 1994 Abdominal Aortic Aneurysm (A AA) Screen 2009 Well Visit 65+ 2009 DTaP/Tdap/Td Vaccine (1 - Tdap) 08/20/2011 2 Pneumococcal vaccine 65+ (2 of 2 - PCV) 01/17/2015 01/17/2014 Influenza Vaccine (Season Ended) 2024 05/05/2017, 03/09/2015, 05/04/2012 Insurance [facility] MEDICARE ADVANTAGE UHC MEDICARE ADVANTAGE Care Teams Enamel Pulverizer Relationship Specialty Start Date End Date Nils Haywood MD PCP - General Internal Medicine 06/30/18
--- OUTSIDE RECORDS SUMMARY | 2024-10-26 20:30 | XMS_ITS | Referral Summary ---
Author [place] [facility] [place] [address] [place] [address] Care Team Providers Care Duplicating Machine Operator Name Role Phone Nils Haywood MD Primary Care Provider [phone] Allergies No known active allergies Medications finasteride [...] Date Diagnosed Date Paroxysmal atrial fibrillation 08/03/2018 Social History Tobacco Use Types Packs/Day Years [...] on file Legal Sex Male 2:48 PM DIRECTOR SOFTWARE Gender Identity Not on file Sexual Orientation Not on file Last Filed Vital Signs Vital Sign Reading Time Taken Comments Blood Pressure 130/80 02/26/2023 11:11 AM DIRECTOR SOFTWARE Pulse 79 02/26/2023 11:11 AM DIRECTOR SOFTWARE Temperature - - Respiratory Rate - - Oxygen Saturation 97% 02/26/2023 11:11 AM DIRECTOR SOFTWARE Inhaled Oxygen Concentration - - Weight 95.7 kg (211 lb) 02/26/2023 11:11 AM DIRECTOR SOFTWARE Height 182.9 cm (6') 02/26/2023 11:11 AM DIRECTOR SOFTWARE Body Mass Index 28.62 02/26/2023 11:11 AM DIRECTOR SOFTWARE Plan of Treatment Not on file Insurance [facility] MEDICARE ADVANTAGE [facility] Address: [facility] [address] [place] [address] MEDICARE ADVANTAGE Care Teams Duplicating Machine Operator Relationship Specialty Start Date End Date Nils Haywood MD PCP - General Internal Medicine 06/30/18
--- NOTE | 2024-10-26 20:40 | ECG_ITS ---
Test Date: 2024-10-26 20:58:47 Measurements Intervals [place] Rate: 96 P: 62 [place]: 147 QRS: 69 QRSD: 140 T: 47 QT: 356 QTc: 451 Interpretive Statements SINUS RHYTHM RIGHT BUNDLE BRANCH BLOCK [120+ ms QRS DURATION, UPRIGHT V1, 40+ ms S IN I/aVL/V4/V5/V6] No previous ECG available for comparison Electronically Signed On 10-27-2024 11:48:10 CDT by Wojciech Mandel M.D.
--- NOTE | 2024-10-26 20:49 | ED.SOB ---
HPI - SOB/Dyspnea General Chief Complaint: Shortness of Breath/Dyspnea Stated Complaint: weakness sob Time Seen by Provider: 10/26/24 20:38 Source: patient Mode of arrival: ambulatory History of Present Illness HPI Narrative: 79 years old white male came to the ED from home complaining of feeling bad started last night like coming down with something. 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 at night started feeling bad. He denies any diaphoresis, nausea or vomiting or chest pain. Today his symptoms got worse not feeling well with chills. History of COPD. Patient does not smoke or drink or use drugs. He denies any shortness of breath or chest pain or abdominal pain or back pain Related Data Home Medications ?Medication ?Instructions ?Recorded ?Confirmed ?Last Taken ?Type apixaban 5 mg tablet (Eliquis) 5 mg PO BID 04/28/23 07/04/24 Unknown History atorvastatin 10 mg tablet 10 mg PO DAILY 04/28/23 07/04/24 Unknown History finasteride 5 mg tablet 5 mg PO DAILY 04/28/23 07/04/24 Unknown History montelukast 10 mg tablet 10 mg PO DAILY 04/28/23 07/04/24 Unknown History tamsulosin 0.4 mg capsule 0.4 mg PO DAILY 04/28/23 07/04/24 Unknown History Allergies Allergy/AdvReac Type Severity Reaction Status Date / Time No Known Allergies Allergy Verified 10/26/24 20:57 Review of Systems Review of Systems: All systems reviewed & are unremarkable except as noted in HPI and below PMFSH Past Medical History Medical History Cataract, right eye Family History Family History Mother Diabetes mellitus Father Hypertension Family history of elevated blood lipids Family history of coronary artery disease Social History Social History Smoking status: Former smoker Smoking end date: 04/20/06 Alcohol intake: never Exam Narrative: General appearance: Well-developed, well-nourished, looks ill and weak Skin: Normal color Head: Normocephalic, nontraumatic Eyes: Clear conjunctiva ENT: Oropharynx normal, ears normal, nose normal Neck: Supple, nontender Chest and respiratory: Airway patent, no respiratory distress, no accessory muscle use Heart: Regular rate/rhythm Abdomen: Soft, nontender, no organomegaly, quiet bowel sounds Vascular: Normal peripheral pulses, normal capillary refill. Musculoskeletal: Normal range of motion, nontender back Neurologic: Alert and oriented ?3, STAPLE PROCESSING MACHINE OPERATOR is normal as tested, no gross motor deficit Course Vital Signs Vital signs: Vital Signs Pulse Rate 96 10/26/24 20:28 Oxygen Delivery Room Air 10/26/24 20:28 Temperature 38.3 C H 10/26/24 20:32 Pulse Rate 98 10/26/24 20:32 Respiratory Rate 21 H 10/26/24 20:32 Blood Pressure 133/75 10/26/24 20:32 Pulse Oximetry 89 L 10/26/24 20:32 Oxygen Delivery Room Air 10/26/24 20:32 MDM - SOB/Dyspnea MDM Narrative Medical decision making narrative: patient came with not feeling well Vital signs showing temperature of 37.3?, saturation 89 on room air otherwise within normal limit Physical examination is significant for ill looking patient ,lethargic and generally weak. Differential diagnosis include pneumonia, upper respiratory viral infection, dehydration, rhabdomyolysis, electrolyte imbalance, heat illness blood workup today included septic protocol and respiratory viral panel showed positive COVID test otherwise with insignificant abnormality Chest x-ray showed no acute abnormality ABG on room air showed oxygen saturation of 89%. Admit to hospitalist Diagnosis COVID, acute hypoxic respiratory failure Lab Data 10/26/24 21:08 10/26/24 21:08 Labs: Lab Results 10/26/24 10/26/24 Range/Units 21:07 21:08 WBC 5.6 (4.8-10.8) K/mm3 RBC 5.46 (4.70-6.10) M/mm3 Hgb 15.0 (12.4-15.3) g/dL Hct 46.5 H (37.0-46.0) % MCV 85.2 (78.0-102.0) fL MCH 27.5 (27.0-31.0) pg MCHC 32.3 (32-36) g/dL RDW 13.5 (11.6-14.4) % Plt Count 200 (150-420) K/mm3 MPV 10.0 (8.7-11.0) fl Immature Gran % (Auto) 0.5 H (0.0-0.0) % Neut % (Auto) 78.5 H (50.0-70.0) % Lymph % (Auto) 7.7 L (18.0-42.0) % [place] % (Auto) 12.1 H (2.0-11.0) % Eos % (Auto) 0.5 L (1.0-6.0) % Baso % (Auto) 0.7 (0.0-1.0) % Lymph # (Auto) 0.43 L (1.10-4.50) K/mm3 [place] # (Auto) 0.68 (0.10-0.90) K/mm3 Eos # (Auto) 0.03 (0.02-0.50) K/mm3 Baso # (Auto) 0.04 (0.00-0.10) K/mm3 Abs Immat Gran (auto) 0.03 H (0.00-0.00) K/mm3 Absolute Neuts (auto) 4.41 (1.70-7.20) K/mm3 Absolute Nucleated RBC 0.00 (0.00-0.00) K/mm3 Nucleated RBC % 0.0 (0-0.0) % PT 11.1 (9.50-12.1) Seconds INR 1.0 APTT 31.0 H (23.9-30.70) Sec Sodium 135 L (137-145) mmol/L Potassium 3.7 (3.4-5.0) mmol/L Chloride 104 (98-107) mmol/L Carbon Dioxide 26 (22-30) mmol/L Anion Gap 5 (4-12) mmol/L BUN 12 (9-20) mg/dL Creatinine 1.03 (0.7-1.3) mg/dL Estim Creat Clear Calc 57 ml/min Estimated GFR > 60 (59 - ) Glucose 96 (65-110) mg/dL Calculated Osmolality 279 L (285-295) mOsm/kg Lactic Acid 1.2 (0.4-2.0) mmol/L Calcium 8.7 (8.4-10.2) mg/dL Total Bilirubin 0.6 (0.2-1.3) mg/dL AST 27 (17-59) U/L ALT 20 (6-50) U/L Alkaline Phosphatase 76 (38-126) U/L Total Creatine Kinase 65 (55-170) U/L Troponin I 0.016 (0.000-0.034) ng/mL C-Reactive Protein 4.4 H (<1.0) mg/dL NT-Pro-B Natriuret Pep 526 H (19.9-100) pg/mL Total Protein 6.6 (6.3-8.2) g/dL Albumin 4.0 (3.5-5.1) g/dL Influenza A (RT-PCR) Negative (Negative) Influenza B (RT-PCR) Negative (Negative) RSV (RT-PCR) Negative (Negative) SARS-CoV-2 RNA (RT-PCR) Positive A (Negative) ABG Data ABG results: 10/26/24 21:08 Puncture Site Right radial ABG pH 7.45 ABG pCO2 36.2 ABG pO2 55.0 L ABG HCO3 24.8 ABG O2 Saturation 89.8 L ABG Base Excess 1.3 Oxyhemoglobin 89.2 L O2 Delivery Device Room air O2 Liters/Min 0.0 Discharge Plan Discharge Clinical Impression: COVID-19 virus infection, Acute hypoxic respiratory failure, History of COPD Patient Disposition: Still a Patient Condition: Stable Additional Instructions: admit to hospitalist Patient Language: Mohawk Prescriptions: No Action finasteride 5 mg tablet 5 mg PO DAILY tamsulosin 0.4 mg capsule 0.4 mg PO DAILY atorvastatin 10 mg tablet 10 mg PO DAILY montelukast 10 mg tablet 10 mg PO DAILY Eliquis 5 mg tablet 5 mg PO BID glycopyrrolate-formoterol 9-4.8 mcg HFA aerosol inhaler 2 puff inhalation BID Qty: 10.7 3RF Follow-up/Referrals: Nils Haywood MD [Primary Care Provider] -
[2024-10-26] MEDS: ACETAMINOPHEN 500 MG TABLET 1000 MG PO (21:02)
[2024-10-26] MEDS: SODIUM CHLORIDE 0.9% IV 1,000 ML 999 ML IV CONT (21:02)
[2024-10-26 21:09] LABS: HCO3 ABG 24.8 mmol/L (23-29); Oxygen Saturation ABG 89.8 % (95-97); PCO2 ABG 36.2 mmHg (35-45); PO2 ABG 55.0 mmHg (75-85)
[2024-10-26 21:11] LABS: Liters per Minute 0.0 LPM; Modified Allen's Test Pass; Site Drawn RIGHT RADIAL
[2024-10-26 21:12] LABS: Hematocrit 46.5 % (37.0-46.0); Hemoglobin 15.0 g/dL (12.4-15.3); Immature Granulocyte Percent A 0.5 % (0.0-0.0); Lymphocytes Absolute Auto 0.43 K/mm3 (1.10-4.50); Mean Corpuscular HGB Conc 32.3 g/dL (32-36); Mean Corpuscular Hemoglobin 27.5 pg (27.0-31.0); Mean Corpuscular Volume 85.2 fL (78.0-102.0); Nucleated Red Blood Cells Absolute Auto 0.00 K/mm3 (0.00-0.00); Nucleated Red Blood Cells Perc 0.0 % (0-0.0); Platelet Count Result 200 K/mm3 (150-420); Red Blood Count 5.46 M/mm3 (4.70-6.10); White Blood Count 5.6 K/mm3 (4.8-10.8)
--- OUTSIDE RECORDS SUMMARY | 2024-10-26 21:16 | XMS_ITS | Clinical Summary ---
Author Organization [facility] [place] [address] [facility] [address] Address [address] [place] [address] Care Team Providers Care Repair Servicer Name Role Phone Nils Haywood MD Primary Care Provider [phone] Allergies No known active allergies Medications finasteride [...] on file Legal Sex Male 2:48 PM AGRICULTURAL PLOW OPERATOR Gender Identity Not on file Sexual Orientation Not on file Obstetrics History Last Filed Vital Signs Vital Sign Reading Time Taken Comments Blood Pressure 130/80 02/26/2023 11:11 AM AGRICULTURAL PLOW OPERATOR Pulse 79 02/26/2023 11:11 AM AGRICULTURAL PLOW OPERATOR Temperature - - Respiratory Rate - - Oxygen Saturation 97% 02/26/2023 11:11 AM AGRICULTURAL PLOW OPERATOR Inhaled Oxygen Concentration - - Weight 95.7 kg (211 lb) 02/26/2023 11:11 AM AGRICULTURAL PLOW OPERATOR Height 182.9 cm (6') 02/26/2023 11:11 AM AGRICULTURAL PLOW OPERATOR Body Mass Index 28.62 02/26/2023 11:11 AM AGRICULTURAL PLOW OPERATOR Plan of Treatment Health Maintenance Due [...] (Season Ended) 2024 05/05/2017, 03/09/2015, 05/04/2012 Insurance [facility] MEDICARE ADVANTAGE UHC MEDICARE ADVANTAGE Care Teams Repair Servicer Relationship Specialty Start Date End Date Nils Haywood MD PCP - General Internal Medicine 06/30/18
--- OUTSIDE RECORDS SUMMARY | 2024-10-26 21:16 | XMS_ITS | Referral Summary ---
Author Organization [facility] [place] [address] Address [address] [place] [address] Care Team Providers Care Field Evidence Technician Name Role Phone Nils Haywood MD Primary [...] on file Legal Sex Male 2:48 PM ROUNDER HAND Gender Identity Not on file Sexual Orientation Not on file Last Filed Vital Signs Vital Sign Reading Time Taken Comments Blood Pressure 130/80 02/26/2023 11:11 AM ROUNDER HAND Pulse 79 02/26/2023 11:11 AM ROUNDER HAND Temperature - - Respiratory Rate - - Oxygen Saturation 97% 02/26/2023 11:11 AM ROUNDER HAND Inhaled Oxygen Concentration - - Weight 95.7 kg (211 lb) 02/26/2023 11:11 AM ROUNDER HAND Height 182.9 cm (6') 02/26/2023 11:11 AM ROUNDER HAND Body Mass Index 28.62 02/26/2023 11:11 AM ROUNDER HAND Plan of Treatment Not on file Insurance [facility] MEDICARE ADVANTAGE MEDICARE ADVANTAGE Care Teams Field Evidence Technician Relationship Specialty Start Date End Date Nils Haywood MD PCP - General Internal Medicine 06/30/18
--- OUTSIDE RECORDS SUMMARY | 2024-10-26 21:16 | XMS_ITS | Clinical Summary ---
Author Organization [facility] Address [facility] [place] [address] Care Team Providers Care Manager Bakery Name Role Phone Nils Haywood MD Primary Care Provider [phone] Allergies No known active allergies Medications budesonide-form [...] this topic Medical Devices Implanted Type Area Cylinder Press Operator Device Identifier Shelf Expiration Date Model / Serial / Lot Iol Tecnis Simplicity Dcb00 - [id number] Implanted:Qty: 1 on 08/05/2023 by Shonda Good MD at [facility] Lens Right: Eye [employer] [id number] 09/13/2025 DCB00 / [id number] / [employer]ec[employer] Iol Implanted:Qty: 1 on 10/12/2023 by Shonda Good MD at [facility] Left: Eye [employer] 06/07/2026 / [id number] / [id number] Insurance [facility] [place] [address] Care Teams Manager Bakery Relationship Specialty Start Date End Date Nils Haywood MD [address] [place] [address] PCP - General INTERNAL MEDICINE 08/05/23
[2024-10-26 21:37] LABS: INR 1.0; Partial Thromboplastin Time 31.0 Sec (23.9-30.70); Prothrombin Time 11.1 Seconds (9.50-12.1)
[2024-10-26 21:41] LABS: Creatine Kinase 65 U/L (55-170)
[2024-10-26 21:41] LABS: Alanine Aminotransferase 20 U/L (6-50); Albumin Level 4.0 g/dL (3.5-5.1); Alkaline Phosphatase 76 U/L (38-126); Anion Gap 5 mmol/L (4-12); Aspartate Amino Transferase 27 U/L (17-59); Bilirubin,Total 0.6 mg/dL (0.2-1.3); Blood Urea Nitrogen 12 mg/dL (9-20); CRP 4.4 mg/dL (<1.0); Calcium 8.7 mg/dL (8.4-10.2); Carbon Dioxide 26 mmol/L (22-30); Chloride 104 mmol/L (98-107); Estimated CRCL calculation 57 ml/min; Estimated Glomerular Filt Rate > 60; Glucose 96 mg/dL (65-110); Osmolality Calculated 279 mOsm/kg (285-295); Potassium 3.7 mmol/L (3.4-5.0); Sodium 135 mmol/L (137-145); Total Protein 6.6 g/dL (6.3-8.2)
[2024-10-26 21:50] LABS: NT Pro B Type Natriuretic Pept 526 pg/mL (19.9-100); Troponin I 0.016 ng/mL (0.000-0.034)
[2024-10-26 22:07] LABS: Influenza A QL RT-PCR Negative (Negative); Influenza B QL RT-PCR Negative (Negative); RSV RNA, RT-PCR Negative (Negative); SARS-CoV-2 RNA PCR Positive (Negative)
[2024-10-27] VITALS (11 sets, daily range): BP systolic 113–125; BP diastolic 58–72; PULSE 63–82; RESP 12–18; TEMP 36.3–36.4; O2SAT 90–99
--- NOTE | 2024-10-27 | CONSULT_PTH ---
PATIENT: Adair Velazquez LOC: [facility] #:[id number] AGE/SX: 79/M ROOM: [facility] RE10/26/[address]: Morelia Stuart APRN : 1945 BED: 1 DIS: 10/28/2024 SPEC #: [id number] RECD: 10/27/24 07:03 STATUS: BIJAL RESaad #: [id number] TARI: 10/27/24 00:[address]: Albert Blakely DEPT: [facility] Consult RECD BY: Natalya Al MLT, ([facility]) ENTERED: 10/27/24 07:04 SP TYPE: Consult OTHR DR: Nils Haywood MD Tissues: A - Peripheral Smear Procedures: Hematology Consult
--- NOTE | 2024-10-27 00:05 | ADMGEN ---
This patient, Adair Velazquez, was admitted to 2nd Floor Room 211-1. Patient/family oriented to hospital policies and general routines including ID bracelet, bed and alarms, visiting hours, pain management, procedures, bathroom and other care routines, personal items, smoking policy, room service/diet, and visiting hours. Discussed Isolation Precautions for Droplet and visitor restrictions. Patient is unable to remember his medications. States he is tired and just wants to go to sleep. Information on how to activate the Rapid Response Team has been discussed. Patient/Family are encouraged to report perceived risks to care and to ask questions if they do not understand what they are told or what they should do.
[2024-10-27] MEDS: IPRATROPIUM 0.5 MG/ALBUTEROL SULFATE 2.5 MG AMPUL.NEB 3 ML INHALATION ×4 (01:23→18:18)
[2024-10-27 06:44] LABS: Hematocrit 42.6 % (37.0-46.0); Hemoglobin 13.6 g/dL (12.4-15.3); Mean Corpuscular HGB Conc 31.9 g/dL (32-36); Mean Corpuscular Hemoglobin 27.5 pg (27.0-31.0); Mean Corpuscular Volume 86.1 fL (78.0-102.0); Platelet Count Result 171 K/mm3 (150-420); Red Blood Count 4.95 M/mm3 (4.70-6.10); White Blood Count 4.6 K/mm3 (4.8-10.8)
[2024-10-27 06:56] LABS: Alanine Aminotransferase 16 U/L (6-50); Albumin Level 3.5 g/dL (3.5-5.1); Alkaline Phosphatase 64 U/L (38-126); Anion Gap 6 mmol/L (4-12); Aspartate Amino Transferase 25 U/L (17-59); Bilirubin,Total 0.4 mg/dL (0.2-1.3); Blood Urea Nitrogen 12 mg/dL (9-20); Calcium 7.8 mg/dL (8.4-10.2); Carbon Dioxide 24 mmol/L (22-30); Chloride 106 mmol/L (98-107); Estimated CRCL calculation 64 ml/min; Estimated Glomerular Filt Rate > 60; Glucose 87 mg/dL (65-110); Osmolality Calculated 280 mOsm/kg (285-295); Potassium 3.7 mmol/L (3.4-5.0); Sodium 136 mmol/L (137-145); Total Protein 5.9 g/dL (6.3-8.2)
[2024-10-27 07:00] LABS: Band Neutrophils Percent 4 % (0-6); Lymphocytes Absolute Manual 0.73 K/mm3 (1.1-4.5); Lymphocytes Percent Manual 16 % (18-44); Monocytes Absolute Manual 0.82 K/mm3 (0.1-0.90); Monocytes Percent Manual 18 % (3-9); Neutrophils Absolute Manual 3.03 K/mm3 (1.3-6.7); Neutrophils Percent Manual 62 % (46-73); Total Cells Counted 100
[2024-10-27] MEDS: dexAMETHasone SOD PHOS INJ 10 MG/ML 1 ML VIAL 6 MG IV PUSH (08:12)
--- NOTE | 2024-10-27 09:25 | P.HP_ITS ---
H&P: HPI History of Present Illness Date/Time: 10/27/24 09:25 Chief Complaint: Dyspnea Narrative: This is a very pleasant 79-year-old male patient with past medical history of cataracts, COPD, HLD, paroxysmal atrial fibrillation on chronic oral anticoagulation, and BPH who presented to the emergency room last evening with complaints of not feeling well and feeling dyspneic after mowing grass for proximally 3 hours outside in the heat of the day. He denied any nausea/ vomiting /diarrhea. He denied any Urinary symptoms of burning, urgency, frequency or hematuria. in the emergency room he was found to be febrile, EKG showing normal sinus rhythm with a right bundle-branch block and rate of 96. CBC unremarkable with WBCs of 5.6, H and H of 15.0/46.5 and platelets of 200. Metabolic panel showing sodium of 135, potassium 3.7, chloride of 104, CO2 of 26, creatinine and BUN of 1.03 and 12 respectively with a glucose 96. Patient did test positive for COVID-19. ABG showing pH of 7.45, pCO2 of 36.2, PO2 of 55.0 which corresponded with patient's hypoxia in ER requiring 2 L of supplemental oxygen. Patient was started on nebulizer treatments and admitted to the hospital observation for continued management. Patient has not been febrile since last evening. Just this morning we were able to wean him off of the supplemental 2 L of oxygen. He has no acute complaints of pain in states he just feels weak in generally unwell. Review of Systems Review of Systems: All systems reviewed & are unremarkable except as noted in HPI and below PMFSH Past Medical History Medical History (Updated 10/27/24 @ 09:39 by YAMILET Jo) COPD (chronic obstructive pulmonary disease) Hyperlipidemia Paroxysmal atrial fibrillation BPH (benign prostatic hyperplasia) Cataract, right eye Family History Family History Mother Diabetes mellitus Father Hypertension Family history of elevated blood lipids Family history of coronary artery disease Social History Social History Smoking packs per day: 1 Smoking cigarettes per day: 20.0 Years smoked: 30 Smoking pack-years: 30.00 Smoking status: Former smoker Tobacco type: cigarettes Second hand tobacco smoke exposure: Yes Smoking end date: 04/20/06 Alcohol intake: never Substance use: never Substance use type: does not use Do You Feel Safe in your Home?: Yes Lack of Transportation: No Lack of Food: Never True Current Housing: I Have Housing Concerned About Future Housing: No Difficulty Paying Gas/Electric Bills: No Difficulty Paying for Meds: No Currently Unemployed: No Education: Bachelor's Degree Difficulty w/ Childcare or Family Care: No Spiritual care concerns: No Meds Home Medications and Allergies Home Medications ?Medication ?Instructions ?Recorded ?Confirmed ?Type apixaban 5 mg tablet (Eliquis) 5 mg PO BID 04/28/23 07/04/24 History atorvastatin 10 mg tablet 10 mg PO DAILY 04/28/23 07/04/24 History finasteride 5 mg tablet 5 mg PO DAILY 04/28/23 07/04/24 History montelukast 10 mg tablet 10 mg PO DAILY 04/28/23 07/04/24 History tamsulosin 0.4 mg capsule 0.4 mg PO DAILY 04/28/23 07/04/24 History glycopyrrolate 9 mcg-formoterol 2 puff inhalation BID #10.7 grams 04/30/23 07/04/24 Rx 4.8 mcg HFA aerosol inhaler Allergies Allergy/AdvReac Type Severity Reaction Status Date / Time No Known Allergies Allergy Verified 10/26/24 20:57 Vital Signs Vital Signs - 24 hr 10/26/24 20:28 10/26/24 20:28 10/26/24 20:32 Temperature 101 F H Pulse Rate 96 98 Respiratory Rate 21 H Blood Pressure 133/75 Pulse Oximetry 89 L Oxygen Delivery Room Air Room Air Oxygen Flow Rate 10/26/24 20:33 10/26/24 20:34 10/26/24 20:45 Temperature 101.0 F H Pulse Rate 103 H 93 102 H Respiratory Rate 23 H 20 14 Blood Pressure 133/75 Pulse Oximetry 90 90 93 Oxygen Delivery Oxygen Flow Rate 10/26/24 20:46 10/26/24 21:03 10/26/24 21:15 Temperature Pulse Rate 99 94 87 Respiratory Rate 16 25 H 26 H Blood Pressure 120/68 Pulse Oximetry 91 Oxygen Delivery Oxygen Flow Rate 10/26/24 21:30 10/26/24 21:45 10/26/24 22:00 Temperature 100.1 F H Pulse Rate 91 86 85 Respiratory Rate 15 21 H 16 Blood Pressure Pulse Oximetry 95 95 94 Oxygen Delivery Oxygen Flow Rate 10/26/24 22:03 10/26/24 22:29 10/26/24 22:30 Temperature Pulse Rate 89 88 87 Respiratory Rate 24 H 20 Blood Pressure Pulse Oximetry 95 93 Oxygen Delivery Oxygen Flow Rate 10/26/24 22:31 10/26/24 22:45 10/26/24 22:46 Temperature Pulse Rate 89 82 82 Respiratory Rate 21 H 22 H 23 H Blood Pressure 132/77 122/72 Pulse Oximetry 82 L 92 92 Oxygen Delivery Oxygen Flow Rate 2 10/26/24 22:53 10/26/24 23:01 10/26/24 23:19 Temperature 98.9 F Pulse Rate 74 Respiratory Rate Blood Pressure Pulse Oximetry 94 Oxygen Delivery Nasal Cannula Oxygen Flow Rate 2 10/26/24 23:30 10/27/24 00:00 10/27/24 00:00 Temperature 97.4 F L Pulse Rate 74 74 Respiratory Rate 16 16 Blood Pressure 125/58 L Pulse Oximetry 94 94 94 Oxygen Delivery Nasal Cannula Nasal Cannula Oxygen Flow Rate 2 2 10/27/24 00:00 10/27/24 01:23 10/27/24 01:40 Temperature Pulse Rate 74 74 80 Respiratory Rate 16 16 16 Blood Pressure Pulse Oximetry 94 94 98 Oxygen Delivery Nasal Cannula Oxygen Flow Rate 2 2 2 10/27/24 05:41 10/27/24 05:52 Temperature Pulse Rate 79 76 Respiratory Rate 16 16 Blood Pressure Pulse Oximetry 99 99 Oxygen Delivery Oxygen Flow Rate 2 2 Exam Const: General: comfortable and no acute distress Other: Sitting in the chair at the bedside in no acute distress. HENMT: Face/Nose/Sinus: Normal nares present Mouth: Yes moist mucous membranes Eyes: General: appearance normal, both eyes and all related structures Neck: Neck: supple and no JVD Lymphatic: lymphadenopathy not noted Resp: Effort & Inspection: normal respiratory effort Auscultation: clear to auscultation bilaterally Cardio: Rate: regular rate Rhythm: regular rhythm GI: Inspection: non-distended GI Palp: Yes Soft to palpation and No Tenderness to palpation present (GI) Auscultation: normal bowel sounds Skin: General skin exam: normal color and no rashes or lesions noted Wounds: no wounds Neuro: General: gait normal Speech: normal speech Motor exam (neuro): 5/5 motor strength present throughout and Normal motor muscle tone present throughout Sensory Exam: normal sensation Extrem: General: normal to inspection, no edema and no pedal edema Psych: Mental Status: mental status grossly normal Affect: normal affect H&P: Results Labs Labs: Short CBC 10/26/24 10/27/24 Range/Units 21:08 06:39 WBC 5.6 4.6 L (4.8-10.8) K/mm3 Hgb 15.0 13.6 (12.4-15.3) g/dL Hct 46.5 H 42.6 (37.0-46.0) % Plt Count 200 171 (150-420) K/mm3 BMP 10/26/24 10/27/24 21:08 06:39 Sodium 135 L 136 L Potassium 3.7 3.7 Chloride 104 106 Carbon Dioxide 26 24 BUN 12 12 Creatinine 1.03 0.91 Glucose 96 87 Calcium 8.7 7.8 L Cardiac Enzymes 10/26/24 10/26/24 Range/Units 21:07 21:08 Total Creatine Kinase 65 (55-170) U/L Troponin I 0.016 (0.000-0.034) ng/mL Liver Function 10/26/24 10/27/24 Range/Units 21:08 06:39 Total Bilirubin 0.6 0.4 (0.2-1.3) mg/dL AST 27 25 (17-59) U/L ALT 20 16 (6-50) U/L Alkaline Phosphatase 76 64 (38-126) U/L Albumin 4.0 3.5 (3.5-5.1) g/dL Assessment and Plan Assessment and plan (1) COVID-19 virus infection: Code(s): U07.1 - COVID-19 Status: Acute Assessment and Plan: * initiate remdesivir with bolus followed by daily infusion * initiate dexamethasone 6 mg IV push Q 24 hours. * Continue scheduled DuoNebs and p.r.n. albuterol * Tylenol as needed for fevers * supplemental oxygen as needed * monitoring trend labs and vital signs * wean oxygen as tolerated (2) BPH (benign prostatic hyperplasia): Code(s): N40.0 - Benign prostatic hyperplasia without lower urinary tract symptoms Status: Chronic Assessment and Plan: * once verified continue home medications (3) Paroxysmal atrial fibrillation: Code(s): I48.0 - Paroxysmal atrial fibrillation Status: Chronic Assessment and Plan: * continue Eliquis 5 mg b.i.d. (4) Hyperlipidemia: Code(s): E78.5 - Hyperlipidemia, unspecified Status: Chronic Assessment and Plan: * continue statin therapy * heart healthy diet (5) COPD (chronic obstructive pulmonary disease): Code(s): J44.9 - Chronic obstructive pulmonary disease, unspecified Status: Chronic Assessment and Plan: * once home medications are verified continue patient's glycopyrrolate - formoterol 9-4.8 mcg HFA inhaler 2 puffs b.i.d. * see 1. Additional recommendations Plan patient overall improving. If he is able to stay off of his supplemental oxygen today would recommend he could potentially discharge to home tomorrow. Quality VTE Prophylaxis VTE prophylaxis: pharmacologic ordered Hospitalist MIPS Advance Care Plan I have confirmed that the patient's Advanced Care Plan is present, code status is documented, or surrogate decision maker is listed in patient medical record.: Yes Medication Reconciliation I have utilized all available resources to obtain, update and review the patients current medications (includes all prescriptions, OTC, herbals, cannabis, and nutritional supplements).: Yes
[2024-10-27] MEDS: REMDESIVIR 200 MG/NS 250 ML 200 MG/250 ML BAG 250 MG IVPB (09:57)
[2024-10-27 17:25] LABS: Add Urine Microscopic? NO; Appearance Urine Clear (Clear); Glucose Urine UA Trace (Negative); Leukocyte Esterase Ur Negative LEU/UL (Negative); Nitrate Urine Negative (Negative); Specific Grav Ur <= 1.005 (1.010-1.020)
[2024-10-27] MEDS: APIXABAN 2.5 MG TABLET 5 MG PO (21:36)
[2024-10-28] VITALS (10 sets, daily range): BP systolic 121–150; BP diastolic 72–80; PULSE 58–84; RESP 16–20; TEMP 36.3–36.6; O2SAT 93–98
[2024-10-28] MEDS: IPRATROPIUM 0.5 MG/ALBUTEROL SULFATE 2.5 MG AMPUL.NEB 3 ML INHALATION ×3 (00:35→12:37)
[2024-10-28] MEDS: dexAMETHasone SOD PHOS INJ 10 MG/ML 1 ML VIAL 6 MG IV PUSH (06:22)
[2024-10-28] MEDS: APIXABAN 2.5 MG TABLET 5 MG PO (08:21)
[2024-10-28] MEDS: FINASTERIDE 5 MG TABLET PO (08:21)
[2024-10-28] MEDS: REMDESIVIR 100 MG/NS 250 ML 100 MG/250 ML BAG 250 MG IVPB (09:08)
--- NOTE | 2024-10-28 10:35 | P.DS_ITS ---
DS: Admitting Diagnosis Discharge Date 10/28/2024 Admitting Diagnosis Acute respiratory failure with hypoxia secondary to COVID DS: Discharge Diagnosis Discharge Diagnosis (1) COVID-19 virus infection: Code(s): U07.1 - COVID-19 Status: Acute (2) BPH (benign prostatic hyperplasia): Code(s): N40.0 - Benign prostatic hyperplasia without lower urinary tract symptoms Status: Chronic (3) Paroxysmal atrial fibrillation: Code(s): I48.0 - Paroxysmal atrial fibrillation Status: Chronic (4) Hyperlipidemia: Code(s): E78.5 - Hyperlipidemia, unspecified Status: Chronic (5) COPD (chronic obstructive pulmonary disease): Code(s): J44.9 - Chronic obstructive pulmonary disease, unspecified Status: Chronic DS: Summary Hospital Course Reason for hospitalization: acute respiratory failure with hypoxia secondary to COVID infection Hospital Course: Admission: Patient was a pleasant 79-year-old male patient with past medical history of cataracts, COPD, HLD, paroxysmal atrial fibrillation on chronic oral anticoagulation, and BPH who presented to the emergency room last evening with complaints of not feeling well and feeling dyspneic after mowing grass for proximally 3 hours outside in the heat of the day. He denied any nausea/ vomiting /diarrhea. He denied any Urinary symptoms of burning, urgency, frequency or hematuria. In the ED: Patient was found to be febrile, EKG showing normal sinus rhythm with a right bundle-branch block and rate of 96. CBC unremarkable with WBCs of 5.6, H and H of 15.0/46.5 and platelets of 200. Metabolic panel showing sodium of 135, potassium 3.7, chloride of 104, CO2 of 26, creatinine and BUN of 1.03 and 12 respectively with a glucose 96. Patient did test positive for COVID-19. ABG showing pH of 7.45, pCO2 of 36.2, PO2 of 55.0 which corresponded with patient's hypoxia in ER requiring 2 L of supplemental oxygen. Patient was started on nebulizer treatments and admitted to the hospital observation for continued management. Hospital course: patient was admitted to the medical unit for further evaluation and treatment of acute respiratory failure with hypoxia secondary to COVID infection he was initiated on Decadron IV push and remdesivir with supplemental oxygen as needed was able to wean oxygen with treatment on room air at 96% other labs were unremarkable and vitals remained stable. Patient is seen and assessed at day of discharge reported feeling back to his baseline and overall improvement all symptoms remained afebrile with no WBC for 24 hours as well as off any supplemental oxygen he also denied any chest pain, shortness a breath nausea, vomiting, fever chills and was tolerating oral intake. patient was discharged home educated on supportive care in isolation guidelines per CDC he was however encouraged to seek medical attention if his symptoms worsened with worsening shortness of breath. Status at Discharge Functional status at discharge: independent ambulation Overall status at discharge: patient is back to baseline Time Spent with Patient Time attestation: Total time spent providing and/or coordinating discharge services: Time spent: Greater than 30 minutes Exam Const: General: comfortable and no acute distress Other: Sitting in the chair at the bedside in no acute distress. HENMT: Face/Nose/Sinus: Normal nares present Mouth: Yes moist mucous membranes Eyes: General: appearance normal, both eyes and all related structures Neck: Neck: supple and no JVD Lymphatic: lymphadenopathy not noted Resp: Effort & Inspection: normal respiratory effort Auscultation: clear to auscultation bilaterally Cardio: Rate: regular rate Rhythm: regular rhythm GI: Inspection: non-distended Auscultation: normal bowel sounds Skin: General skin exam: normal color and no rashes or lesions noted Wounds: no wounds Neuro: General: gait normal Speech: normal speech Motor exam (neuro): 5/5 motor strength present throughout and Normal motor muscle tone present throughout Sensory Exam: normal sensation Extrem: General: normal to inspection, no edema and no pedal edema Psych: Mental Status: mental status grossly normal Affect: normal affect DS: Data Data Completed and Pending Labs on day of discharge: Labs from last 24 hours 10/27/24 16:49 Urine Color Light yellow Urine Appearance Clear Urine pH 6.0 Ur Specific [place] <= 1.005 L Urine Protein Negative Urine Glucose (UA) Trace H Urine Ketones Negative Ur Blood (Man) Negative Urine Nitrate Negative Urine Bilirubin Negative Urine Urobilinogen 0.2 Leukocyte Esterase Rfl Negative Discharge Plan Discharge Attending physician on discharge: Eulogio Dsouza Consulting providers: Wojciech Mandel; Gege Smart; Darell Soliz Discharging Clinician: Morelia Stuart Anticipated Discharge Date/Time: 10/28/24 10:32 Patient Disposition: Home Activity: as tolerated Diet: heart healthy Discharge Instructions: 1). COVID * continue with supportive care may use acetaminophen for mild temperatures and body aches * encourage activity as tolerated * keep hydrated with water and may use electrolyte replacement such as Gatorade or Pedialyte * continue to use incentive spirometer * follow recommended isolation guidelines How can you care for yourself at home? ? Keep track of any new symptoms or changes in your symptoms. ? Rest until you feel better. ? Be safe with medicines. Take your medicines exactly as prescribed. Call your doctor if you think you are having a problem with your medicine. ? Do not drive after taking a prescription pain medicine. ? Ensure to follow-up with primary care physician as indicated and provide updated medication list provided to you at discharge. When should you call for help? Call 911 anytime you think you may need emergency care. For example, call if: ? You passed out (lost consciousness). Call your doctor now or seek immediate medical care if: ? You have new symptoms like fever, difficulty breathing, Chest pain, vomiting, or rash. ? You have new or different pain. ? You are confused and are having trouble thinking clearly. ? Your symptoms are getting worse. Watch closely for changes in your health, and be sure to contact your doctor if: ? You do not get better as expected. Patient Instructions: Apixaban (By mouth), Fall Prevention for Older Adults (DC), Blood Thinners (DC), COVID-19 (Coronavirus Disease 2019) (DC) Patient Language: Yi Stand Alone Forms: General Discharge Information Follow-up/Referrals: Nils Haywood MD [Primary Care Provider] - 2 weeks Discharge Medications: New Eliquis 2.5 mg Tablet 5 mg PO Q12HR Qty: 60 0RF Continued albuterol sulfate 90 mcg/actuation HFA aerosol inhaler 2 puff INHALATION Q4-6H PRN (Reason: shortness of breath or wheezing) finasteride 5 mg tablet 5 mg PO DAILY Date of admission: 10/26/24 22:37 Primary Care Provider: Nils Haywood Admitting Provider: Eulogio Dsouza Attending physician on admission: Morelia Stuart Condition: Stable Quality VTE Prophylaxis VTE prophylaxis: pharmacologic ordered -Patient's previous records reviewed on admission -ER notes reviewed in detail on admission -discussed all findings and current treatment plan with patient/Family/POA -Consultations reviewed for recommendations -Patient's disposition for safe discharge discussed with briefcase sewer Dictation performed by [employer] direct speech recognition software, therefore district sales leader variants and typographical errors may occur. Hospitalist MIPS Heart Failure (Exclusion) Patient has history of Heart Transplant or Left Ventricular Assistive Device?: No IF YES, STOP HERE Heart Failure (Qualifier) Patient has current or prior documentation of LVEF less than or equal to 40%, or mod/servere depressed LVSF?: No IF NO, STOP HERE
--- NOTE | 2024-10-28 14:27 | PC.NURSE ---
Addendum entered by Luisa Lombardi RN 10/28/24 14:39: Pt d/c home w/ daughter via w/c. Son unable to make it. Pt reinformcement given on d/c instructions of rest over weekend and need for fluids and f/u care. Pt and his daughter stated understanding. Original Note: Pt d/c instructions given, VSS, instructed on new medications prescribed and f/u care w PCP. Pt stated understanding and d/c home via w/c w/ son.
--- NOTE | 2024-10-31 15:58 | PC.NURSE ---
Patient understands all instruction and education.
== END 2024-10-28 14:30 | disposition home or self-care (01) ==
LOC: CHSED 22:37 → CHS2ND 10-27 06:58
PROVIDERS: Nurse Practitioner Adult Health; Admitting Provider Internal Medicine; Emergency Provider Emergency Medicine; PCP Internal Medicine; Visit Provider Nurse Practitioner Family
DX: U07.1 COVID-19 (principal); J96.01 Acute respiratory failure with hypoxia; J44.9 Chronic obstructive pulmonary disease, unspecified; I48.0 Paroxysmal atrial fibrillation; N40.0 Benign prostatic hyperplasia without lower urinary tract symptoms; H26.9 Unspecified cataract; E78.5 Hyperlipidemia, unspecified; Z79.01 Long term (current) use of anticoagulants; Z79.899 Other long term (current) drug therapy; Z87.891 Personal history of nicotine dependence
CPT/HCPCS: 36415; 36600; 71045; 71275; 80053; 81003; 82550; 82805; 83605; 83880; 84484; 85025; 85610; 85730; 86140; 87040; 87637; 93005; 94640; 96361; 96365; 96366; 96375; 96376; 99285; A9270; G0378; J0248; J1100; J7030; Q9967